=== PATIENT | female | born 1990 | race Caucasian/White ===

== ENCOUNTER 2023-11-09 16:05 | Outpatient (REF) | payer MEDICAID, SELFPAY ==
--- NOTE | 2023-11-09 11:50 | PAPFT_PTH ---
PATIENT: Soraya Rizvi V LOC: [facility]#:[id number] AGE/SX: 32/F ROOM: RE11/09/[address]: Katie Cardoza : 1990 BED: DIS: 11/09/2023 SPEC #: [id number] RECD: 11/12/23 13:01 STATUS: SHELBY REQ #: [id number] GAEL: 11/09/23 11:[address]: Katie Cardoza DEPT: [facility] Cytology RECD BY: Roro Leo ENTERED: 11/12/23 13:01 SP TYPE: PAPFT OTHR DR: Ronel Fernandez Tissues: 1 - CX/ENDOCX FOR PAP SMEARS Procedures: PAP THIN PREP/[facility] Screening HPV DNA PROBE Comments: [id number] (HPV 16 & 18/45)
[2023-11-09 15:14] LABS: ALT 21 U/L (14-59); AST 14 U/L (15-37); Albumin 3.9 g/dL (3.4-5.0); Alkaline Phosphatase 48 U/L (46-116); Anion Gap 8.1 mmol/L (3-11); BUN 9 mg/dL (7-18); Bilirubin, Total 0.38 mg/dL (0.2-1.0); CO2 29.9 mmol/L (21.0-32.0); CREATININE 0.9 mg/dL (0.55-1.02); Calcium 9.3 mg/dL (8.5-10.1); Calculated LDL 117 mg/dL (<100); Chloride 103 mmol/L (98-107); Cholesterol 187 mg/dL (<200); Estimated GFR 87.11 (mL/min/1.73m2); Glucose 92 mg/dL (74-106); HDL Cholesterol 45 mg/dL (40-60); Potassium 4.4 mmol/L (3.5-5.1); Sodium 141 mmol/L (136-145); Total Protein 7.6 g/dL (6.4-8.2); Triglyceride 129 mg/dL (<150)
== END 2023-11-09 16:06 | disposition home or self-care (01) ==
LOC: NCHCN 16:05
PROVIDERS: PCP Registered Nurse; Visit Provider Family Medicine
DX: Z00.00 Encounter for general adult medical examination without abnormal findings (principal); Z12.4 Encounter for screening for malignant neoplasm of cervix
CPT/HCPCS: 80053; 80061; 88142; 87624

== ENCOUNTER 2024-10-31 15:12 | Outpatient (REF) | payer MEDICAID, SELFPAY ==
[2024-10-31 14:39] LABS: HCT 41.9 % (36.0-46.0); HGB 13.7 g/dL (11.2-15.7); MCH 28.4 pg (27.0-33.0); MCHC 32.7 % (32.0-36.0); MCV 87 fL (80-95); MPV 10.3 fL (8.0-11.0); Platelet Count 198 10^3/uL (130-400); RBC 4.83 10^6/uL (3.93-5.22); RDW 12.3 % (11.7-14.6); RDW-SD 39.5 fL; WBC 7.65 10^3/uL (4.4-10.8)
[2024-10-31 15:12] LABS: Hemoglobin A1C 6.0 % (<5.7)
[2024-10-31 15:13] LABS: ALT 22 U/L (14-59); AST 20 U/L (15-37); Albumin 4.0 g/dL (3.4-5.0); Alkaline Phosphatase 64 U/L (46-116); Anion Gap 7.6 mmol/L (3-11); BUN 10 mg/dL (7-18); Bilirubin, Total 0.3 mg/dL (0.2-1.0); CO2 28.4 mmol/L (21.0-32.0); Calcium 9.6 mg/dL (8.5-10.1); Chloride 103 mmol/L (98-107); Estimated GFR 117.04 (mL/min/1.73m2); Glucose 106 mg/dL (74-106); Potassium 4.2 mmol/L (3.5-5.1); Sodium 139 mmol/L (136-145); TSH (W/Ref FT4) 3.25 uIU/mL (0.36-3.74); Total Protein 7.7 g/dL (6.4-8.2); Vitamin B12 717 pg/mL (193-986); Vitamin D 25 Total 22 ng/mL (30-100)
== END 2024-10-31 15:13 | disposition home or self-care (01) ==
LOC: NCHCN 15:12
PROVIDERS: PCP Registered Nurse; Visit Provider Family Medicine
DX: F11.21 Opioid dependence, in remission (principal); R53.83 Other fatigue; R73.03 Prediabetes
CPT/HCPCS: 80053; 82306; 85027; 82607; 83036; 84443